=== PATIENT | female | born 1950 | race Native Hawaiian/Other Pacific Islander ===

== ENCOUNTER 2016-10-20 14:02 | Outpatient (CLI) | payer OTHER ==
[~2016-10-20 14:02] MED LIST: AMLO2.5T PO; HYZAAR1 TA1 PO; MOBIC7.5 M1 PO; PRAVACHOL20 MG PO; PREDNISONE5 MG PO; PROPAFENONE225 MG PO; TRAM50TA PO; UNITH DIRECT50 MCG PO; VITAMIN D-32000 UNIT PO; WARFARIN1 MG PO
== END 2016-10-20 19:20 | disposition home or self-care (01) ==
LOC: LABW 14:02
DX: Z79.01 Long term (current) use of anticoagulants (principal); Z51.81 Encounter for therapeutic drug level monitoring
CPT/HCPCS: 36415; 85610

== ENCOUNTER 2016-11-21 10:08 | Outpatient (CLI) | payer OTHER | END 2016-11-21 20:12 | disposition home or self-care (01) | LOC: LABW 10:08 | DX: Z79.01 Long term (current) use of anticoagulants (principal); Z51.81 Encounter for therapeutic drug level monitoring | CPT/HCPCS: 36415; 85610 ==

== ENCOUNTER 2016-12-20 15:45 | Outpatient (CLI) | payer OTHER | END 2016-12-20 19:17 | disposition home or self-care (01) | LOC: LABW 15:45 | DX: Z79.01 Long term (current) use of anticoagulants (principal); Z51.81 Encounter for therapeutic drug level monitoring | CPT/HCPCS: 36415; 85610 ==

== ENCOUNTER 2017-01-20 09:15 | Outpatient (CLI) | payer OTHER | END 2017-01-20 19:11 | disposition home or self-care (01) | LOC: LABW 09:15 | DX: Z79.01 Long term (current) use of anticoagulants (principal); I48.0 Paroxysmal atrial fibrillation; Z51.81 Encounter for therapeutic drug level monitoring | CPT/HCPCS: 36415; 85610 ==

== ENCOUNTER 2017-02-20 09:30 | Outpatient (CLI) | payer OTHER | END 2017-02-20 10:30 | disposition home or self-care (01) | LOC: LABW 09:30 | DX: I48.0 Paroxysmal atrial fibrillation (principal); Z79.01 Long term (current) use of anticoagulants; Z51.81 Encounter for therapeutic drug level monitoring | CPT/HCPCS: 36415; 85610 ==

== ENCOUNTER 2017-03-22 09:18 | Outpatient (CLI) | payer OTHER | END 2017-03-22 10:20 | disposition home or self-care (01) | LOC: LABW 09:18 | DX: I48.0 Paroxysmal atrial fibrillation (principal); Z79.01 Long term (current) use of anticoagulants; Z51.81 Encounter for therapeutic drug level monitoring | CPT/HCPCS: 36415; 85610 ==

== ENCOUNTER 2017-04-20 13:34 | Outpatient (CLI) | payer OTHER | END 2017-04-20 19:18 | disposition home or self-care (01) | LOC: LABW 13:34 | DX: I48.0 Paroxysmal atrial fibrillation (principal); Z79.01 Long term (current) use of anticoagulants; Z51.81 Encounter for therapeutic drug level monitoring | CPT/HCPCS: 36415; 85610 ==

== ENCOUNTER 2017-05-29 09:52 | Outpatient (CLI) | payer OTHER | END 2017-05-29 10:55 | disposition home or self-care (01) | LOC: LABW 09:52 | DX: I48.0 Paroxysmal atrial fibrillation (principal); Z79.01 Long term (current) use of anticoagulants; Z51.81 Encounter for therapeutic drug level monitoring | CPT/HCPCS: 36415; 85610 ==

== ENCOUNTER 2017-06-23 09:45 | Outpatient (CLI) | payer OTHER | END 2017-06-23 19:12 | disposition home or self-care (01) | LOC: MAMMO 09:45 → LAB 09:45 → MAMMO 10:30 | DX: Z12.31 Encounter for screening mammogram for malignant neoplasm of breast (principal); I48.0 Paroxysmal atrial fibrillation; Z79.01 Long term (current) use of anticoagulants; Z51.81 Encounter for therapeutic drug level monitoring | CPT/HCPCS: 36415; 85610 ==

== ENCOUNTER 2017-07-20 16:29 | Outpatient (CLI) | payer OTHER | END 2017-07-20 21:14 | disposition home or self-care (01) | LOC: LABW 16:29 | DX: I48.0 Paroxysmal atrial fibrillation (principal); Z79.01 Long term (current) use of anticoagulants; Z51.81 Encounter for therapeutic drug level monitoring | CPT/HCPCS: 36415; 85610 ==

== ENCOUNTER 2017-08-21 15:14 | Outpatient (CLI) | payer OTHER | END 2017-08-21 19:07 | disposition home or self-care (01) | LOC: LABW 15:14 | DX: Z79.01 Long term (current) use of anticoagulants (principal); I48.0 Paroxysmal atrial fibrillation; Z51.81 Encounter for therapeutic drug level monitoring | CPT/HCPCS: 36415; 85610 ==

== ENCOUNTER 2017-09-21 09:27 | Outpatient (CLI) | payer OTHER | END 2017-09-21 19:40 | disposition home or self-care (01) | LOC: LABW 09:27 | DX: Z79.01 Long term (current) use of anticoagulants (principal); Z51.81 Encounter for therapeutic drug level monitoring; I48.0 Paroxysmal atrial fibrillation | CPT/HCPCS: 36415; 85610 ==

== ENCOUNTER 2017-10-19 14:45 | Outpatient (CLI) | payer OTHER | END 2017-10-19 20:17 | disposition home or self-care (01) | LOC: LABW 14:45 | DX: I48.0 Paroxysmal atrial fibrillation (principal); Z79.01 Long term (current) use of anticoagulants; Z51.81 Encounter for therapeutic drug level monitoring | CPT/HCPCS: 36415; 85610 ==

== ENCOUNTER 2018-06-25 08:42 | Outpatient (CLI) | payer OTHER | END 2018-06-25 23:27 | disposition home or self-care (01) | LOC: MAMMO 08:42 | DX: Z12.31 Encounter for screening mammogram for malignant neoplasm of breast (principal) ==

== ENCOUNTER 2019-07-05 10:05 | Outpatient (CLI) | payer OTHER | END 2019-07-05 22:04 | disposition home or self-care (01) | LOC: MAMMO 10:05 | DX: Z12.31 Encounter for screening mammogram for malignant neoplasm of breast (principal) ==

== ENCOUNTER 2020-04-13 10:18 | Outpatient (CLI) | payer OTHER ==
[2020-04-13 11:18] LABS: POTASSIUM 4.2 mmol/L (3.6-5.2)
== END 2020-04-13 19:19 | disposition home or self-care (01) ==
LOC: LAB 10:18
PROVIDERS: Nurse Practitioner Family
DX: Z79.01 Long term (current) use of anticoagulants (principal); I48.0 Paroxysmal atrial fibrillation
CPT/HCPCS: 80053; 85610

== ENCOUNTER 2020-10-12 16:04 | Outpatient (CLI) | payer OTHER | END 2020-10-12 20:52 | disposition home or self-care (01) | LOC: RAD 16:04 | PROVIDERS: ATTEND Nurse Practitioner Family | DX: U07.1 COVID-19 (principal) ==

== ENCOUNTER 2021-08-19 14:03 | Outpatient (CLI) | payer OTHER | END 2021-08-19 19:24 | disposition home or self-care (01) | LOC: US 14:03 | PROVIDERS: ATTEND Surgery | DX: S81.801A Unspecified open wound, right lower leg, initial encounter (principal); R94.39 Abnormal result of other cardiovascular function study; Y92.9 Unspecified place or not applicable ==

== ENCOUNTER 2021-10-04 14:00 | Outpatient (CLI) | payer OTHER | END 2021-10-04 18:55 | disposition home or self-care (01) | LOC: MAMMO 14:00 | PROVIDERS: ATTEND Internal Medicine | DX: Z12.31 Encounter for screening mammogram for malignant neoplasm of breast (principal) ==

== ENCOUNTER 2022-02-22 16:29 | Outpatient (CLI) | payer OTHER ==
[2022-02-22 16:55] LABS: PLATELET COUNT 199 K/uL (152-353)
== END 2022-02-22 19:31 | disposition home or self-care (01) ==
LOC: LAB 16:29
PROVIDERS: ATTEND Nurse Practitioner Family
DX: I10 Essential (primary) hypertension (principal); E03.8 Other specified hypothyroidism; M19.90 Unspecified osteoarthritis, unspecified site; F41.8 Other specified anxiety disorders; K21.9 Gastro-esophageal reflux disease without esophagitis; E78.2 Mixed hyperlipidemia; I48.0 Paroxysmal atrial fibrillation; E55.9 Vitamin D deficiency, unspecified; E53.8 Deficiency of other specified B group vitamins; Z79.899 Other long term (current) drug therapy
CPT/HCPCS: 80053; 80061; 82306; 82607; 83036; 84439; 84443; 85027; 85610

== ENCOUNTER 2022-11-01 08:49 | Outpatient (CLI) | payer OTHER | END 2022-11-01 19:19 | disposition home or self-care (01) | LOC: MAMMO 08:49 | PROVIDERS: ATTEND Nurse Practitioner Family | DX: Z12.31 Encounter for screening mammogram for malignant neoplasm of breast (principal) ==

== ENCOUNTER 2023-06-22 11:18 | Outpatient (CLI) | payer OTHER ==
[~2023-06-22 11:18] MED LIST changes: +JANTOVEN2 MG PO; -WARFARIN1 MG PO
[2023-06-22] MEDS ORDERED: ALPR0.2566 PO (18:06)
[2023-06-22] MEDS ORDERED: NEURONTIN 100M100 MG PO (18:06)
[2023-06-22] MEDS ORDERED: HYZAAR1 TA2 PO (18:07)
[2023-06-22] MEDS ORDERED: LEVO0.08 PO (18:08)
[2023-06-22] MEDS ORDERED: EQ OMEPRAZOLE20 MG PO (18:09)
[2023-06-22] MEDS ORDERED: PRAVASTATIN10 MG PO (18:11)
== END 2023-06-22 19:37 | disposition home or self-care (01) ==
LOC: US 11:18
PROVIDERS: ATTEND Nurse Practitioner Family
DX: T14.8XXA Other injury of unspecified body region, initial encounter (principal); M79.606 Pain in leg, unspecified; R60.0 Localized edema; Y92.89 Other specified places as the place of occurrence of the external cause